=== PATIENT | female | born 1970 | race Two or more races ===

== ENCOUNTER 2022-09-23 09:05 | Outpatient (CLI) | payer MEDICAID | END 2022-09-23 23:59 | disposition home or self-care (01) | LOC: LAB 09:05 | PROVIDERS: ATTEND Specialist | DX: Z01.812 Encounter for preprocedural laboratory examination (principal); Z20.822 Contact with and (suspected) exposure to COVID-19 | CPT/HCPCS: U0003; C9803 ==

== ENCOUNTER 2022-09-29 05:08 | Day surgery (SDC) | payer MEDICAID ==
--- NOTE | 2022-09-29 05:58 | NUR ---
PRE-OP RN NOTE- MS PATIENT CAME IN UNIT AT AROUND 0521 AM, AMBULATORY. NO S/S OF APPARENT DISTRESS ON ROOM AIR. BREATHING EVEN AND UNLABORED. ALL CONSENT FORM SIGNED, PATIENT IN FOR RIGHT KNEE ARTHROSCOPY WITH DR. ANDRE. PATIENT REFUSED URINE FOR BECAUSE PER PATIENT SHE HAD FULL HYSTERECTOMY 5 YEARS AGO. OR NURSES AWARE. IV ACCESS ESTABLISHED ON THE LEFT WRIST #20G. CHECK LIST DONE. V/S TAKEN AND CHARTED. NPO SINCE 1800 YESTERDAY. PATIENT GOING TO PACU AFTER SURGERY AND WILL GO HOME.
[2022-09-29] MEDS ORDERED: BUPIVACAINE 0.25% 75 MG/30 ML VIAL ONE (06:03)
[2022-09-29] MEDS ORDERED: FENTANYL PF 250MCG/5ML AMPUL ONE (06:10)
[2022-09-29] MEDS ORDERED: FAMOTIDINE/PF INJ 20 MG/2 ML VIAL IV ONE (06:11)
[2022-09-29] MEDS ORDERED: HYDROMORPHONE INJ 2 MG/ML DISP.SYRIN ONE (06:11)
[2022-09-29] MEDS ORDERED: MIDAZOLAM HCL 2 MG/2ML VIAL ONE (06:11)
== END 2022-09-29 15:00 | disposition home or self-care (01) ==
LOC: DS 05:08 → MED 05:10 → UNDOADMIN 05:10 → MED 06:22 → UNDODISIN 09:34 → DS 15:00
PROVIDERS: ATTEND Specialist
DX: S83.241A Other tear of medial meniscus, current injury, right knee, initial encounter (principal); S83.281A Other tear of lateral meniscus, current injury, right knee, initial encounter; M94.261 Chondromalacia, right knee; X58.XXXA Exposure to other specified factors, initial encounter; Y93.89 Activity, other specified; Y92.89 Other specified places as the place of occurrence of the external cause; Y99.8 Other external cause status; E66.01 Morbid (severe) obesity due to excess calories; E11.9 Type 2 diabetes mellitus without complications; Z88.5 Allergy status to narcotic agent; Z88.8 Allergy status to other drugs, medicaments and biological substances; Z98.890 Other specified postprocedural states; Z79.899 Other long term (current) drug therapy
CPT/HCPCS: 29880; 82962 ×2; J0690; J2704; J1170; J3490 ×3; J2765; J2405; J7030; J2250; A4217; J3010; G0378